=== PATIENT | female | born 1995 | race African-American/Black ===

== ENCOUNTER 2018-10-13 10:45 | Emergency (ER) | payer MEDICAID ==
[~2018-10-13] VITALS: Ht 157.5 cm; Wt 57.0 kg
[2018-10-13 11:57] LABS: EOSINOPHILS % 5.3 % (0.0-5.0); HEMATOCRIT. 33.3 % (36.0-48.0); HEMOGLOBIN. 11.1 g/dL (12.0-16.0); MEAN CORPUSCULAR VOLUME 80.7 fL (81.0-99.0); MEAN PLATELET VOLUME 7.7 fl (7.4-10.4); MONOCYTES % 7.6 % (2.0-8.0); NEUTROPHILS % 53.1 % (40.0-76.0); PLATELET 328 x1000/uL (130-400); RED BLOOD CELL COUNT 4.12 mill/uL (4.2-5.4); RED CELL DISTRIBUTION WIDTH 15.1 % (11.6-14.6)
[2018-10-13 12:03] LABS: CHLORIDE 106 mEq/L (98-107)
[2018-10-13] MEDS ORDERED: KETOROLAC 30MG/ML VIAL IV ONE (12:30)
[2018-10-13 16:21] VITALS: BP 95/62
== END 2018-10-13 16:24 | disposition home or self-care (01) ==
LOC: ER 10:45
DX: R07.89 Other chest pain (principal); R06.02 Shortness of breath; R11.0 Nausea; R51 Headache
CPT/HCPCS: 36415; 71045; 80053; 83880; 84484; 85025; 93005; 96374; 99284; J1885